=== PATIENT | male | born 1965 | race African-American/Black ===

== ENCOUNTER → 2018-06-03 12:44 | Outpatient (CLI) | payer MEDICAID, SELFPAY ==
--- NOTE | 2018-04-29 15:34 | HP.PCM_ITS ---
History and Physical DATE OF SURGERY: 05/16/2018 SCHEDULED PROCEDURE: Left shoulder arthroscopy with subacromial decompression and distal clavicle excision and rotator cuff repair HISTORY OF PRESENT ILLNESS: This is a 53-year-old male who is been having ongoing pain in the left nondominant shoulder since September 2017. Patient can't recall any known trauma or injury. 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 Patient states he lost his job because he cannot do the work. He is currently unemployed. Patient did have an MRI of the left shoulder which did reveal supraspinatus tear. Patient continues to complain of increased pain in his limited with his range of motion left shoulder. He cannot do any overhead activity due to the pain. He has been using oxycodone for pain control. Patient denies any chest pain, shortness of breath, fevers chills, recent infections. He does have medical history pertinent for hypertension. After discussion with Dr. Jese Barrera, the patient does wish to proceed with a left shoulder arthroscopy with subacromial decompression, distal clavicle excision, and rotator cuff repair. REVIEW OF SYSTEMS: ROS: Const: Denies anorexia, change in appetite, fever, hard of hearing, vision problems and weight change. CV: Denies chest pain, heart murmur, irregular heartbeat and peripheral vascular disease. Resp: Denies asthma, cough, pneumonia, sleep apnea, SOB, tuberculosis and wheezing. GI: Denies constipation, diarrhea, difficulty swallowing, heartburn, nausea, bloody stools and vomiting. : Urinary: denies incontinence. Musculo: Denies leg swelling, limp, trouble walking and weakness. Skin: Denies Raynaud's, history of shingles and tattoo. Neuro: Denies ambulatory dysfunction, dizziness, numbness/tingling and tremor. Psych: Denies anxiety, depression, insomnia, mental illness and stress. Brian/Lymph: Denies anemia, bleeding/bruising tendency and past transfusion. Reviewed, no changes. PAST MEDICAL HISTORY: PMH: Medical Problems: High Blood Pressure Accidents: LT Great Toe FX LT Pinky Finger Injury - TABLE SAW Surgical Hx: None Anesthesia Complications: None Assistive Devices: None Reviewed, no changes. SOCIAL HISTORY: SH: Marital: Single.Occupation: Currently Working.Work Status: Currently Working.Hand Dominance: Right-handed. Personal Habits: Cigarette Use: Never Smoked Cigarettes.Alcohol: Has consumed alcohol in the past.Drug Use: Denies Use.Enjoy Exercising: Daily. Reviewed, no changes. VITALS: Ht: 67 Wt: 138lb Wt k.597 BMI: 21.6 BP: 140/84 Pulse: 68 Resp: 16 T: 98.3 T: 36.8C ALLERGIES: No Known Drug Allergy MEDICATIONS: Oxycodone HCL 5 mg 1-2 tab by mouth every 6 hours, Tylenol Extra Strength 500 mg 2 by mouth every 8 hours, Diclofenac Potassium 50 mg take one tablet by mouth three times daily PRE-OP EXAM: General appearance:NORMAL Other: Eyes: Conjunctivae and lids: NORMAL Pupils: ERR Ears, Nose, Mouth, and Throat: NORMAL Other: Inspection of lips, teeth and gums: NORMAL Other: Neck: Examination of neck: no masses noted. Respiratory: Assessment of respiratory effort: NORMAL Other: Auscultation of lungs: clear to auscultation no wheezes, rhonchi or rales. Cardiovascular: Auscultation of heart: regular rate and rhythm, no murmurs, gallops or rubs. Exam of carotid arteries: NORMAL Other: Gastrointestinal: Exam of abdomen: soft, nontender, nondistended bowel sounds present. PHYSICAL EXAMINATION: Left shoulder is cool to touch without erythema. Patient has tenderness to palpation over the acromioclavicular joint as well as the subacromial space on the lateral shoulder. Patient has limited active range of motion of the left shoulder. Active Left shoulder range of motion: Forward flexion 40, abduction 40, external rotation 40, all producing increased pain. Passive range of motion of the left shoulder: Forward flexion 170, adduction 170, external rotation 50. Patient has 4/5 supraspinatus strength test with increased pain, 4/5 external rotation strength with increased pain, 5-/5 internal rotation with pain. Positive drop arm exam, positive Boyer impingement sign, positive Neer's impingement. Sensation intact to light touch. IMAGING STUDIES: 1. Previous x-rays of the left shoulder reveal no acute finding for fracture or dislocation. There is good joint space in the glenohumeral joint. No lytic or blastic lesions. Next 2. MRI of the left shoulder was obtained on January 05, 2018 at [facility] reveals high-grade partial versus complete tear of the supraspinatus. There is downsloping of the acromion. IMPRESSION: 1. Left shoulder rotator cuff tear 2. Hypertension PLAN: Dr. Barrera did discuss and review with the patient all treatment options including surgical versus nonsurgical options. Patient does wish to proceed with the above-stated procedure. Potential risks, benefits, and complications of the procedure were discussed in detail including but not limited to , infection, nerve and blood vessel damage, persistent pain, numbness, tingling, paresthesias, blood clot, pulmonary embolism, and requirement for possible further surgery. The patient expressed full understanding and has no further questions for the doctor. Patient does agree to proceed with the above-stated procedure and has signed the surgery consent form. ___ I have re-examined the patient. There are no clinical changes since date of exam. ___ See progress notes for changes. ___ Dictated on admission Date: Time: Signature:
== END ==
PROVIDERS: Family Provider Family Medicine; PCP Family Medicine; Referring Provider Orthopaedic Surgery; Visit Provider Orthopaedic Surgery
DX: Z01.818 Encounter for other preprocedural examination (principal)

== ENCOUNTER → 2018-07-12 13:51 | Outpatient (CLI) | payer MEDICAID, SELFPAY ==
[2018-07-12 15:52] LABS: Absolute Lymphocyte Count 2.25 X10^3/ul (0.83-4.51); Absolute Neutrophil Count 4.3 X10^3/uL (2.0-7.7); Basophil# 0.01 X10^3/uL; Basophil% 0.1 % (0-1); Eosinophil# 0.02 X10^3/uL; Eosinophils% 0.3 % (0-5); Hematocrit 40.7 % (40-54); Hemoglobin 13.8 g/dl (13.0-16.5); Lymphocyte # 2.25 X10^3/ul (4.0); Lymphocyte % 32.3 % (19-41); Mean Corp Hgb Conc 33.9 g/gl (32-36); Mean Corpuscular Hgb 29.4 pg (27.0-32.0); Mean Corpuscular Volume 86.8 fL (80-94); Mean Platelet Vol. 11.1 fl (6.2-12.0); Monocyte# 0.36 X10^3/uL; Monocyte% 5.2 % (0-10); Neutrophil # 4.29 X10^3/uL (2.7-7.7); Neutrophil % 61.7 % (47-70); Platelet Count 196 K/mm3 (150-450); RBC Distribution Width CV 12.4 % (11.6-14.6); RBC Distribution Width SD 39.4 fl (35.1-43.9); Red Blood Count 4.69 M/mm3 (4.6-6.2)
[2018-07-12 15:53] LABS: POSITIVE COUNT NO; POSITIVE DIFFERENTIAL NO; POSITIVE MORPHOLOGY NO
[2018-07-12 16:16] LABS: ALB/GLOB Ratio 0.9 RATIO (0.9-2.4); AST(SGOT) 19 U/L (15-37); Alanine Aminotransfer ALT/SGPT 27 U/L (16-61); Albumin, Serum 3.7 g/dL (3.2-5.0); Alkaline Phosphatase 76 U/L (45-117); Anion Gap 9 (5-15); BUN 14 mg/dL (7-18); BUN/Creat Ratio 9.2 RATIO (10-20); Calcium,Total 8.9 mg/dL (8.5-10.1); Chloride 109 mmol/L (98-107); Creatinine, Serum 1.52 mg/dL (0.70-1.30); EST Glomerular Filtration Rate 51 mL/min (>60); Est Glom Filt Rate - Afr Amer 62 mL/min (>60); Globulin 3.9 g/dL (2.2-4.2); Glucose 107 mg/dL (74-106); Potassium 3.7 mmol/L (3.5-5.1); Protein, Total 7.6 g/dL (6.4-8.2); Sodium Level 141 mmol/L (136-145)
--- OUTSIDE RECORDS SUMMARY | 2018-10-14 01:30 | XMS RPT_ITS ---
:1965 Author Organization OHIP Care Team Providers Name Role Phone CLAUDE WESTLEY Attending Unavailable PHYSICIAN, NONE Primary Care Unavailable PHYSICIAN, NONE Primary Care Unavailable GLORY HENDERSON, DR. YAMILE Paez Attending Unavailable MELODY HENDERSON, DR. BUBBA Kaiser Attending Unavailable MELODY HENDERSON, DR. BUBBA Kaiser Primary Care Unavailable MELODY HENDERSON, DR. BUBBA Kaiser Attending Unavailable DR. BUBBA DRISCOLL DO Primary Care Unavailable OZZY CHAU, MS. AJ Roach Attending Unavailable DR. BUBBA DRISCOLL DO Primary Care Unavailable LEISA BRICE Attending Unavailable MELODY HENDERSON, DR. BUBBA Kaiser Primary Care Unavailable LEISA BRICE Attending Unavailable DR. BUBBA DRISCOLL DO Primary Care Unavailable TARIK LOUISE Attending Unavailable DR. BUBBA DRISCOLL DO Primary Care Unavailable CEDRIC VILLALPANDO Attending Unavailable CEDRIC VILLALPANDO Referring Unavailable DR. BUBBA DRISCOLL DO Primary Care Unavailable Bubba Driscoll Attending Unavailable Bubba Driscoll Primary Care Unavailable Janis Barrera Attending Unavailable Janis Barrera Referring Unavailable Bubba Driscoll Primary Care Unavailable PROBLEMS PROBLEMS DATE TYPE CONDITION / CODE ATTENDING STATUS SOURCE 07/12/2018 Unknown Z01.818 - Encounter Bubba Driscoll Active [place] for other [facility] preprocedural Hospital examination / Repository Z01.818(ICD-10) PROCEDURES PROCEDURES No Procedure Records FoundRESULTS RESULTS CBC W/DIFF, AUTOMATED Collected: 07/12/2018 Status: F Source: [place] 1:53 PM [facility] REPOSITORY TYPE CODE TESTS RESULT OUT OF RANGE REFERENCE UNITS LAB L100.1000 4.4-11.0 K/mm3 Normal WBC 7.0 LAB L100.1200 4.6-6.2 M/mm3 Normal RBC 4.69 LAB L100.1300 13.0-16.5 g/dl Normal HGB 13.8 LAB L100.1400 40-54 % Normal HCT 40.7 LAB L100.1500 80-94 fL Normal MCV 86.8 LAB L100.1600 27.0-32.0 pg Normal MCH 29.4 LAB L100.1700 32-36 g/gl Normal MCHC 33.9 LAB L100.1810 11.6-14.6 % Normal RDW CV 12.4 LAB L100.1820 35.1-43.9 fl Normal RDW SD 39.4 LAB L100.1900 150-450 K/mm3 Normal PLT 196 LAB L100.2000 6.2-12.0 fl Normal MPV 11.1 LAB L100.2100 47-70 % Normal NEUT% 61.7 LAB L100.2200 19-41 % Normal LY% 32.3 LAB L100.2300 0-10 % Normal MONO% 5.2 LAB L100.2400 0-5 % Normal EO% 0.3 LAB L100.2500 0-1 % Normal BASO% 0.1 LAB L100.2550 0.0-0.9 % Normal IM GRAN % 0.400 Result Comment: IG% - Immature Granulocytes (promyelocytes, myelocytes and metamyelocytes) > 1% indicates that a LEFT SHIFT is Present. LAB L100.2620 2.0-7.7 X10 3/uL Normal Absolute Neut 4.3 LAB L100.2720 0.83-4.51 X10 3/ul Normal Absolute Lymph 2.25 Performed By: #### L100.0100 #### [facility] [address] [place], [address] COMPREHENSIVE METABOLIC Collected: 07/12/2018 Status: F Source: [facility] 1:53 PM [facility] REPOSITORY TYPE CODE TESTS RESULT OUT OF RANGE REFERENCE UNITS LAB L501.0100 74-106 mg/dL High GLU 107 Result Comment: Fasting Glucose result from 100 to 125 mg/dL suggests IMPAIRED HOMEOSTASIS per A.D.A. criteria. Please note revised GLUCOSE reference range effective 2017. LAB L501.1000 7-18 mg/dL Normal BUN 14 LAB L501.1100 0.70-1.30 mg/dL High CREAT,SERUM 1.52 Result Comment: The validity of the calculated GFR AND GFRAA in patients over 70 years has not been determined. Clinical correlation is essential. LAB L501.1110 >60 mL/min Low EST GFR 51 Result Comment: Non- GFR Calc LAB L501.1115 >60 mL/min Normal EST GFR - AA 62 Result Comment: GFR Calc LAB L501.1300 10-20 RATIO Low BUN/CRE 9.2 LAB L501.1500 6.4-8.2 g/dL Normal T PROT 7.6 LAB L501.1800 3.2-5.0 g/dL Normal ALB 3.7 LAB L501.1950 2.2-4.2 g/dL Normal GLOB 3.9 LAB L501.2000 0.9-2.4 RATIO Normal A/G 0.9 LAB L501.2200 8.5-10.1 mg/dL Normal CA 8.9 LAB L501.4100 15-37 U/L Normal AST 19 LAB L501.4305 45-117 U/L Normal ALK P 76 LAB L501.4405 16-61 U/L Normal ALT 27 LAB L501.4600 0.20-1.00 mg/dL Normal T BILI 0.30 LAB L501.5300 136-145 mmol/L Normal NA 141 LAB L501.5600 3.5-5.1 mmol/L Normal K 3.7 LAB L501.5900 98-107 mmol/L High CL 109 LAB L501.6100 21.0-32.0 mmol/L Normal CO2 23.0 LAB L501.6200 5-15 Normal GAP 9 Performed By: #### L500.4050 #### [facility] [address], [address] HISTORY AND PHYSICAL Observed: 04/29/2018 Status: F Source: [facility] EXAM 3:34 PM [facility] REPOSITORY [facility] Medical Records Department [address] [place] [address] History and Physical 04/29/18 1533 MR#: [id number] Acct: [id number] Name: JANIS SEVERINO Rep #: [id number] : 1965 53 From: Cedric Wray PA-C PCP: Bubba Driscoll DO Status: PRE [facility] [facility] [place] and Physical DATE OF SURGERY: 05/16/2018 SCHEDULED PROCEDURE: Left shoulder arthroscopy with subacromial decompression and distal clavicle excision and rotator cuff repair HISTORY OF PRESENT ILLNESS: This is a 53-year-old male who is been having ongoing pain in the left nondominant shoulder since September 2017. Patient can't recall any known trauma or injury. 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 Patient states he lost his job because he cannot do the work. He is currently unemployed. Patient did have an MRI of the left shoulder which did reveal supraspinatus tear. Patient continues to complain of increased pain in his limited with his range of motion left shoulder. He cannot do any overhead activity due to the pain. He has been using oxycodone for pain control. Patient denies any chest pain, shortness of breath, fevers chills, recent infections. He does have medical history pertinent for hypertension. After discussion with Dr. Janis Barrera, the patient does wish to proceed with a left shoulder arthroscopy with subacromial decompression, distal clavicle excision, and rotator cuff repair. REVIEW OF SYSTEMS: ROS: Const: Denies anorexia, change in appetite, fever, hard of hearing, vision problems and weight change. CV: Denies chest pain, heart murmur, irregular heartbeat and peripheral vascular disease. Resp: Denies asthma, cough, pneumonia, sleep apnea, SOB, tuberculosis and wheezing. GI: Denies constipation, diarrhea, difficulty swallowing, heartburn, nausea, bloody stools and vomiting. : Urinary: denies incontinence. Musculo: Denies leg swelling, limp, trouble walking and weakness. Skin: Denies Raynaud's, history of shingles and tattoo. Neuro: Denies ambulatory dysfunction, dizziness, numbness/tingling and tremor. Psych: Denies anxiety, depression, insomnia, mental illness and stress. Brian/Lymph: Denies anemia, bleeding/bruising tendency and past transfusion. Reviewed, no changes. PAST MEDICAL HISTORY: PMH: Medical Problems: High Blood Pressure Accidents: LT Great Toe FX LT Pinky Finger Injury - TABLE SAW Surgical Hx: None Anesthesia Complications: None Assistive Devices: None Reviewed, no changes. SOCIAL HISTORY: SH: Marital: Single.Occupation: Currently Working.Work Status: Currently Working.Hand Dominance: Right-handed. Personal Habits: Cigarette Use: Never Smoked Cigarettes.Alcohol: Has consumed alcohol in the past.Drug Use: Denies Use.Enjoy Exercising: Daily. Reviewed, no changes. VITALS: Ht: 67 Wt: 138lb Wt k.597 BMI: 21.6 BP: 140/84 Pulse: 68 Resp: 16 T: 98.3 T: 36.8C ALLERGIES: No Known Drug Allergy MEDICATIONS: Oxycodone HCL 5 mg 1-2 tab by mouth every 6 hours, Tylenol Extra Strength 500 mg 2 by mouth every 8 hours, Diclofenac Potassium 50 mg take one tablet by mouth three times daily PRE-OP EXAM: General appearance:NORMAL Other: Eyes: Conjunctivae and lids: NORMAL Pupils: ERR Ears, Nose, Mouth, and Throat: NORMAL Other: Inspection of lips, teeth and gums: NORMAL Other: Neck: Examination of neck: no masses noted. Respiratory: Assessment of respiratory effort: NORMAL Other: Auscultation of lungs: clear to auscultation no wheezes, rhonchi or rales. Cardiovascular: Auscultation of heart: regular rate and rhythm, no murmurs, gallops or rubs. Exam of carotid arteries: NORMAL Other: Gastrointestinal: Exam of abdomen: soft, nontender, nondistended bowel sounds present. PHYSICAL EXAMINATION: Left shoulder is cool to touch without erythema. Patient has tenderness to palpation over the acromioclavicular joint as well as the subacromial space on the lateral shoulder. Patient has limited active range of motion of the left shoulder. Active Left shoulder range of motion: Forward flexion 40, abduction 40, external rotation 40, all producing increased pain. Passive range of motion of the left shoulder: Forward flexion 170, adduction 170, external rotation 50. Patient has 4/5 supraspinatus strength test with increased pain, 4/5 external rotation strength with increased pain, 5-/5 internal rotation with pain. Positive drop arm exam, positive Boyer impingement sign, positive Neer's impingement. Sensation intact to light touch. IMAGING STUDIES: 1. Previous x-rays of the left shoulder reveal no acute finding for fracture or dislocation. There is good joint space in the glenohumeral joint. No lytic or blastic lesions. Next 2. MRI of the left shoulder was obtained on January 05, 2018 at [facility] reveals high-grade partial versus complete tear of the supraspinatus. There is downsloping of the acromion. IMPRESSION: 1. Left shoulder rotator cuff tear 2. Hypertension PLAN: Dr. Barrera did discuss and review with the patient all treatment options including surgical versus nonsurgical options. Patient does wish to proceed with the above-stated procedure. Potential risks, benefits, and complications of the procedure were discussed in detail including but not limited to , infection, nerve and blood vessel damage, persistent pain, numbness, tingling, paresthesias, blood clot, pulmonary embolism, and requirement for possible further surgery. The patient expressed full understanding and has no further questions for the doctor. Patient does agree to proceed with the above-stated procedure and has signed the surgery consent form. ___ I have re-examined the patient. There are no clinical changes since date of exam. ___ See progress notes for changes. ___ Dictated on admission Date: Time: Signature: 04/29/18 1534 <Electronically signed by Cedric Wray PA-C> Date Cedric Wray PA-C Cosigner Signature: Date (if applicable) CC: Bubba Driscoll DO; Cedric CHAU Signed CBC Collected: 02/07/2018 Status: F Source: [facility] 9:30 AM [facility] REPOSITORY TYPE CODE TESTS RESULT OUT OF REFERENCE UNITS RANGE LAB WBC(LOINC) 4.60-10.80 10 3/mcL WBC 7.40 LAB RBCCT(LOINC 4.04-6.13 10 6/mcL ) RBC 5.01 LAB HGB(LOINC) 14.0-18.0 G/dL Hgb 14.6 LAB HCT(LOINC) 42.0-52.0 % Hct 42.6 LAB MCV(LOINC) 80.0-94.0 fL MCV 85.1 LAB MCH(LOINC) 27.0-31.2 pg MCH 29.2 LAB MCHC(LOINC) 31.8-35.4 G/dL MCHC 34.3 LAB RDW(LOINC) 11.5-14.5 % RDW 13.4 LAB PLT(LOINC) 130-400 10 3/mcL Platelet 228 LAB MPV(LOINC) 7.4-10.4 fL MPV 8.3 Performed By: #### CBC, ADIFF, ANEU, GFR, BMP #### [address] [address] .AUTO DIFF Collected: 02/07/2018 Status: F Source: [facility] 9:30 AM [facility] REPOSITORY TYPE CODE TESTS RESULT OUT OF REFERENCE UNITS RANGE LAB JOSEPH(LOINC) 37.0-80.0 % Neutrophil % 59.8 LAB LYM(LOINC) 10.0-50.0 % Lymphocyte % 33.5 LAB MON(LOINC) 1.7-13.0 % Monocyte % 5.6 LAB EO(LOINC) 0.0-7.0 % Eosinophil % 0.6 LAB BAS(LOINC) 0.0-2.5 % Basophil % 0.5 LAB ABLYM(LOIN 0.77-3.85 10 3/mcL C) Lymphocyte, 2.50 Absolute LAB ENEIDA(LOINC 0.15-1.00 10 3/mcL ) Monocyte, 0.40 Absolute LAB AEOS(LOINC 0.00-0.40 10 3/mcL ) Eosinophil, 0.00 Absolute LAB ABAS(LOINC 0.00-0.19 10 3/mcL ) Basophil, 0.00 Absolute Performed By: #### CBC, ADIFF, ANEU, GFR, BMP #### [address] [address] .NEUABS Collected: 02/07/2018 Status: F Source: [facility] 9:30 AM [facility] REPOSITORY TYPE CODE TESTS RESULT OUT OF REFERENCE UNITS RANGE LAB ANEU(LOINC) 2.85-6.16 10 3/mcL Neutrophil, 4.40 Absolute Performed By: #### CBC, ADIFF, ANEU, GFR, BMP #### [address] [address] .GFR Collected: 02/07/2018 Status: F Source: [facility] 9:30 AM [facility] REPOSITORY TYPE CODE TESTS RESULT OUT OF REFERENCE UNITS RANGE LAB GFRAA(LOINC ml/min/1.73 ) sqm GFR >60 Mont[place]grin Result Comment: GFR Population mean for , Non- Americans Ages 20-29 = 116 mL/min/1.73 sq.m. Ages 30-39 = 107 mL/min/1.73 sq.m. Ages 40-49 = 99 mL/min/1.73 sq.m. Ages 50-59 = 93 mL/min/1.73 sq.m. Ages 60-69 = 85 mL/min/1.73 sq.m. Ages 70+ = 75 mL/min/1.73 sq.m. Chronic Kidney Disease: Less than 60 mL/min/1.73 square meters End Stage Renal Disease: Less than 15 mL/min/1.73 square meters LAB GFRNO(LOINC) ml/min/1.73sqm GFR Non- >60 Result Comment: GFR Population mean for , Non- Americans Ages 20-29 = 116 mL/min/1.73 sq.m. Ages 30-39 = 107 mL/min/1.73 sq.m. Ages 40-49 = 99 mL/min/1.73 sq.m. Ages 50-59 = 93 mL/min/1.73 sq.m. Ages 60-69 = 85 mL/min/1.73 sq.m. Ages 70+ = 75 mL/min/1.73 sq.m. Chronic Kidney Disease: Less than 60 mL/min/1.73 square meters End Stage Renal Disease: Less than 15 mL/min/1.73 square meters Performed By: #### CBC, ADIFF, ANEU, GFR, BMP #### [address] [address] BMP Collected: 02/07/2018 Status: F Source: [facility] 9:30 AM [facility] REPOSITORY TYPE CODE TESTS RESULT OUT OF REFERENCE UNITS RANGE LAB GLU(LOINC) 70-105 mg/dL Glucose High Level 116 LAB NA(LOINC) 136-146 mEq/L Sodium Level 140 LAB K(LOINC) 3.5-5.1 mEq/L Potassium Level 4.4 LAB CL(LOINC) 98-107 mEq/L Chloride 105 LAB CO2(LOINC) 22-29 mEq/L CO2 28 LAB EBAL(LOINC mEq/L ) Electrolyte Balance 7.0 LAB BUN(LOINC) 7.0-18.0 mg/dL BUN 11.3 LAB CRE(LOINC) 0.6-1.2 mg/dL Creatinine Lvl (s) 0.9 LAB BC(LOINC) 7-27 ratio BUN/Creatinine 13 Ratio LAB CA(LOINC) 8.4-10.2 mg/dL Calcium Lvl 9.7 Performed By: #### CBC, ADIFF, ANEU, GFR, BMP #### [id number] [place], [place] [address] MRI SHOULDER W/O Observed: 01/05/2018 Status: F Source: [facility] CONTRAST LEFT 1:00 PM [facility] REPOSITORY ORIGINAL MRI SHOULDER W/O CONTRAST LEFT CLINICAL STATEMENT: LEFT SHOULDER PAIN. Os acromiale COMPARISON: LEFT shoulder radiograph 12/25/2017 FINDINGS: The os acromiale is 2.5 cm in length. There is a small amount of marrow edema within the base of the acromion process posteriorly, adjacent to the synchondrosis or pseudarthrosis. There is no significant lateral downsloping of the acromion/os acromiale. The acromioclavicular joint is intact. There is no significant acromioclavicular joint arthrosis. The rotator cuff muscles are normal in bul k. The distal supraspinatus tendon is attenuated, and there is high-grade partial versus complete tear, without tendon retraction. Infraspinatus and subscapularis tendinosis is demonstrated. Fluid signa l within the subscapularis raises question for focal delamination type tear. The teres minor is intact. The long head biceps tendon appears torn. The labrum is degenerated. Glenohumeral relationship is preserved. Mildly prominent nodes are incidentally noted in the axilla. IMPRESSION: 1. High-grade partial versus complete tear of the supraspinatus. No significant tendon retraction. 2. Infraspinatus and subscapularis tendinosis. Apparent delamination type tear of the subscapularis. 3. Long head biceps tendon appears torn. 4. Question axillary adenopathy, clinical correlation needed. 5. Os acromiale. Interpreted By: Olga Little MD Preliminary Report By: Olga Little MD Electronically Signed By: Olga Little MD Dictated Date: 01/05/2018 3:18:12 PM Prelim Date: 01/05/2018 3:18:12 PM Sign Date: 01/05/2018 3:37:25 PM XR FOREIGN BODY LOC Observed: 01/05/2018 Status: F Source: [facility] EYE BILATERAL 12:58 PM [facility] REPOSITORY ORIGINAL XR FOREIGN BODY LOC EYE BILATERAL CLINICAL STATEMENT: pre screening for mri COMPARISON: None FINDINGS:A single image of the orbits was performed to evaluate for foreign body. There is no metallic foreign body confirmed. Artifact is noted incidentally overlying the RIGHT lateral soft tissues adj acent to the zygoma. There is however, findings compatible with fairly extensive paranasal sinus disease in the maxillary sinuses primarily on the RIGHT. IMPRESSION:No opaque foreign body within either orbit Interpreted By: Lorenza Batres MD Preliminary Report By: Lorenza Batres MD Electronically Signed By: Lorenza Batres MD Dictated Date: 01/05/2018 1:09:55 PM Prelim Date: 01/05/2018 1:09:55 PM Sign Date: 01/05/2018 1:10:27 PM XR CHEST 1 VIEW Observed: 01/04/2018 Status: F Source: [facility] 4:20 PM [facility] REPOSITORY ORIGINAL Images acquired, not reported on this accession number. XR SHOULDER MINIMUM 2 Observed: 12/25/2017 Status: F Source: [facility] RIGHT 9:24 AM [facility] REPOSITORY ORIGINAL XR SHOULDER MINIMUM 2 VIEWS RIGHT CLINICAL STATEMENT: luiz shoulder pain COMPARISON: 01/29/2015 FINDINGS: 4 views obtained. An os acromiale noted. Chronic remodeling noted at the rotator cuff insertion. No fracture visualized. There is no traumatic malalignment. IMPRESSION: Large os acromiale. Indicators of chronic rotator cuff disease Interpreted By: Rene Sheppard MD Preliminary Report By: Rene Sheppard MD Electronically Signed By: Rene Sheppard MD Dictated Date: 12/25/2017 9:52:00 AM Prelim Date: 12/25/2017 9:52:00 AM Sign Date: 12/25/2017 9:53:23 AM XR SHOULDER MINIMUM 2 Observed: 12/25/2017 Status: F Source: [facility] LEFT 9:20 AM [facility] REPOSITORY ORIGINAL XR SHOULDER MINIMUM 2 VIEWS LEFT CLINICAL STATEMENT: luiz shoulder pain COMPARISON: None FINDINGS: A large os acromiale noted. Chronic remodeling at the rotator cuff insertion visualized. There is no fracture or traumatic malalignment. IMPRESSION: 1. Large os acromiale. 2. Indicators of chronic rotator cuff disease Interpreted By: Rene Sheppard MD Preliminary Report By: Rene Sheppard MD Electronically Signed By: Rene Sheppard MD Dictated Date: 12/25/2017 9:53:25 AM Prelim Date: 12/25/2017 9:53:25 AM Sign Date: 12/25/2017 9:54:34 AM ALLERGIES ALLERGIES DATE TYPE / CODE NAME / CODE REACTION SEVERITY SOURCE 05/02/2018 Drug No Known Unknown [place] Allergy/4160 Allergies/F00 Hospital [address](SNOMED 8115657(RXNOR Repository CT) M) ENCOUNTERS ENCOUNTERS ADMIT/DISCHARGE ACCOUNT NUMBER ADMITTING ENCOUNTER LOCATION SOURCE CLASS 07/12/2018 [id number] Ambulatory [facility] ding:BFHLAB Repository 06/03/2018 [id number] Ambulatory [facility] ding:SD Repository 05/02/2018 [id number] Ambulatory BBuilding:On license of [facility] Repository 04/11/2018/04/11/20 [id number] Emergency BBuilding:[address] Repository 02/07/2018 [id number] Ambulatory BBuilding:On license of [facility] Repository 02/07/2018/02/08/20 [id number] Ambulatory [address] ding:OLAB [facility] Repository 01/05/2018/01/06/20 [id number] Ambulatory [address] ding:RAD [facility] Repository 01/04/2018/01/05/20 [id number] Ambulatory [address] ding:[facility] Repository 12/25/2017/12/26/19 [id number] Ambulatory [address] ding:[facility] Repository 12/08/2017/12/09/19 [id number] Emergency BBuilding:[address] [facility] Repository 11/24/2017/11/25/19 [id number] Emergency BBuilding:[address] Repository PAYERS PAYERS ENCOUNTER GUARANTOR PAYER SUBSCRIBER SOURCE 07/12/2018 JANIS Guo Primary JANIS Guo [facility] Insurance:Mary DOMINGUEZ: [facility] y Number: [id number] [id number] Repository [address]Nvb: [phone]) Date:9983-21-48[phone] (HP) [address] [place] [address]XW: 07/12/2018 Secondary NOT GIVENUNK [place] Insurance:SELF PAY [facility]: Effective Repository Date:2018-07-12 06/03/2018 JANIS Guo [facility] JANIS Guo [place] [id number] Insurance:[place] HUNTERDOB: Community [address] y Number: [id number], [place] [id number] Repository [address]Oea: ([phone]) Date:0115-48-64[phone] () [address] [place] [address]RL: 06/03/2018 Secondary NOT GIVENUNK [place] Insurance:SELF PAY [facility] Number: Effective Repository Date:2018-04-20 05/02/2018 JANIS Guo [facility]:GIBBS HUNTERDOB: [facility] W MEDICAIDPolicy [id number] Repository MARK[address] Number: [address] [place] [id number] [place], [place] [address]Hta: ([phone]) Date:2018-05-02 577[address]Gmh: [id number] [phone] (HP)Tel: [phone] (WP) Name:X[address] ()Tel: [phone] [phone] () [place], [place] [address]FH: 04/11/2018 JANIS Guo [facility] JANIS Guo [facility] HUNTERDOB: Insurance:GIBBS HUNTERDOB: [facility] W MEDICAIDPolicy [id number] Repository MARKET Number: [address] [facility] [place] [id number] [place], [place] [address]Bou: 330) Date:2018-04-11 419[address]Fdb: [id number] [phone] (HP)Tel: [phone] (WP) Name:XPO Eve (HP)Tel: [phone] ClaimLong 0000000 (WP) ARIANNE Monk [address]JD: 02/07/2018 JANIS Guo [facility] JANIS Bullard [facility] HUNTERDOB: Insurance:[place] P[place] HUNTERDOB: [facility] CONNECTPolicy Number: [id number] Repository MARKET [id number] [place], [place] Date:2018-02-07 - [place], [place] [address]Waz: [phone] [phone]: Name:CPO Prado [phone] (HP)Tel: [phone] (WP) MD Hayley (HP)Tel: [phone]: (WP) [phone] 02/07/2018 JANIS Brant [facility] JANIS Bullard [facility] HUNTERDOB: Insurance:[facility] HUNTERDOB: [facility] CONNECTPolicy Number: [id number] Repository MARKET [id number] [address] [place], [place] Date:2018-02-07 - [place], [place] [address]Ldd: [phone] [phone]: Name:CPO Prado [phone] (HP)Tel: [phone]) MD Hayley (HP) (WP) [phone]: (WP) [phone] 01/05/2018 JANIS Brant [facility] JANIS Bullard [facility] HUNTERDOB: Insurance:[place] PPO HUNTERDOB: [facility] CONNECTPolicy Number: [id number] Repository MARKET [id number] [place], [place] Date:2017-12-30 [place], [place] [address]Zah: [phone] [id number]: Name:CPO Prado [phone] (HP)Tel: [phone]) MD Haylye (HP) (WP) [phone]: (WP) [phone] 01/04/2018 [facility] HUNTERDOB: [facility] [id number] PAYPolicy Number: [id number] Repository [address] [place] [address] W [facility] [address]Iwo: Date:2018-01-03 - [place], [place] [id number] Name: [phone]: [phone]) (HP) [phone] (WP) (HP) (WP) 12/25/2017 [facility] HUNTERDOB: [facility] CONNECTPolicy Number: [id number] Repository MARKET [id number] [place], [place] Date:2017-12-25 - [place], [place] [address]Vih: [phone] [phone]: Name:CPO Prado [phone] (HP)Tel: [phone]) MD Hayley (HP) (WP) [phone]: (WP) [phone] 12/08/2017 [facility] HUNTERDOB: [facility] CONNECTPolicy Number: [id number] Repository MARKET [id number] [place], [place] Date:2017-12-08 - [place], [place] [address]Odj: [phone] [phone]: Name:CPO Prado [phone] (HP)Tel: [phone]) MD Hayley (HP) (WP) [phone]: (WP) [phone] 11/24/2017 JANIS Guo [facility] HUNTERDOB: Insurance:[facility] HUNTERDOB: [facility] [id number] [facility] Number: [id number] Repository MARKET [id number] [address] [place], [place] Date:2017-11-24 [place], [place] [address]Txx: [phone] [phone]: Name:CPO Prado [phone] ()Tel: [phone] jignesh () (WP) [phone]: (WP) [phone]
== END ==
PROVIDERS: Family Provider Family Medicine; PCP Family Medicine; Visit Provider Family Medicine
DX: Z01.818 Encounter for other preprocedural examination (principal)
CPT/HCPCS: 36415; 80053; 85025

== ENCOUNTER 2018-10-03 07:31 | Day surgery (SDC) | payer MEDICAID, SELFPAY ==
--- NOTE | 2018-09-27 15:58 | HP.PCM_ITS ---
History and Physical DATE OF SURGERY: 10/03/2018 SCHEDULED PROCEDURE: Left shoulder arthroscopy with subacromial decompression, distal clavicle excision, rotator cuff repair HISTORY OF PRESENT ILLNESS: This is a 53-year-old male who has been having ongoing pain in the left nondominant shoulder since September 2017. 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 Patient states he lost his job previously because he could not work. He was initially to undergo the surgery in April 2018 but had to cancel due to an infected tooth. Since then patient has had clearance from primary care physician Dr. Driscoll. Patient has had a previous MRI which did reveal supraspinatus tear. Pain continues in the left shoulder and his range of motion is limited due to the pain. He has increased pain and difficulty with any overhead activity. He has been using oxycodone for pain control. After discussion with Dr. Dr. Jese Barrera, the patient wishes to proceed with a left shoulder arthroscopy with subacromial decompression, distal clavicle excision, and rotator cuff repair. Patient currently denies any chest pain, shortness of breath, fevers chills, or recent infections. Patient has medical history pertinent for hypertension. REVIEW OF SYSTEMS: ROS: Const: Denies anorexia, change in appetite, fever, hard of hearing, vision problems and weight change. CV: Denies chest pain, heart murmur, irregular heartbeat and peripheral vascular disease. Resp: Denies asthma, cough, pneumonia, sleep apnea, SOB, tuberculosis and wheezing. GI: Denies constipation, diarrhea, difficulty swallowing, heartburn, nausea, bloody stools and vomiting. : Urinary: denies incontinence. Musculo: Denies leg swelling, limp, trouble walking and weakness. Skin: Denies Raynaud's, history of shingles and tattoo. Neuro: Denies ambulatory dysfunction, dizziness, numbness/tingling and tremor. Psych: Denies anxiety, depression, insomnia, mental illness and stress. Brian/Lymph: Denies anemia, bleeding/bruising tendency and past transfusion. Reviewed, no changes. PAST MEDICAL HISTORY: PMH: Medical Problems: High Blood Pressure Accidents: LT Great Toe FX LT Pinky Finger Injury - TABLE SAW Surgical Hx: None Anesthesia Complications: None Assistive Devices: None Reviewed, no changes. SOCIAL HISTORY: SH: Marital: Single.Occupation: Not Currently Working.Work Status: Not Working Currently.Hand Dominance: Right-handed. Personal Habits: Cigarette Use: Never Smoked Cigarettes.Alcohol: Has consumed alcohol in the past.Drug Use: Denies Use.Enjoy Exercising: Daily. Reviewed, no changes. VITALS: Ht: 67 Wt: 147lb Wt k.679 BMI: 23.0 BP: 120/82 Pulse: 66 Resp: 16 T: 98.6 T: 37.0C ALLERGIES: No Known Drug Allergy MEDICATIONS: Diclofenac Potassium 50 mg take one tablet by mouth three times daily, Oxycodone HCL 5 mg 1-2 q 6 hours prn pain PRE-OP EXAM: General appearance:NORMAL Other: Eyes: Conjunctivae and lids: NORMAL Pupils: ERR Ears, Nose, Mouth, and Throat: NORMAL Other: Inspection of lips, teeth and gums: NORMAL Other: Neck: Examination of neck: no masses noted. Respiratory: Assessment of respiratory effort: NORMAL Other: Auscultation of lungs: clear to auscultation no wheezes, rhonchi or rales. Cardiovascular: Auscultation of heart: regular rate and rhythm, no murmurs, gallops or rubs. Exam of carotid arteries: NORMAL Other: Gastrointestinal: Exam of abdomen: soft, nontender, nondistended bowel sounds present. PHYSICAL EXAMINATION: Left shoulder is cool to touch without erythema or signs of infection. Patient does have tenderness to palpation over the acromioclavicular joint. Patient has limited range of motion of the left shoulder secondary to pain. Patient has positive Boyer and positive Neer impingement sign. Sensation intact to light touch. Neurovascularly intact. IMAGING STUDIES: 1. Previous x-rays of left shoulder revealed no findings of fracture or dislocation. Joint space in the glenohumeral joint. No lytic or blastic lesions. 2. MRI of the left shoulder was obtained at [facility] on September 02, 2018 which reveals full-thickness supraspinatus tear with retraction. IMPRESSION: 1. Left shoulder rotator cuff tear 2. Hypertension PLAN: Dr. Jese Barrera did discuss and review with the patient all treatment options including surgical versus nonsurgical options. Patient does wish to proceed with the above-stated procedure. Potential risks, benefits, and complications of the procedure were discussed in detail including but not limited to , infection, nerve and blood vessel damage, persistent pain, numbness, tingling, paresthesias, blood clot, pulmonary embolism, and requirement for possible further surgery. The patient expressed full understanding and has no further questions for the doctor. Patient does agree to proceed with the above-stated procedure and has signed the surgery consent form. This dictation was created using voice recognition software. Phonetic and/or grammatical errors may exist.. ___ I have re-examined the patient. There are no clinical changes since date of exam. ___ See progress notes for changes. ___ Dictated on admission Date: Time: Signature:
[2018-10-03] VITALS (8 sets, daily range): BP systolic 142–199; BP diastolic 80–103; PULSE 50–87; RESP 16–18; TEMP 35.7–36.9; O2SAT 99–100; BMI 21.4
--- NOTE | 2018-10-03 08:04 | EKG12_ITS ---
Test Reason : PRE-OP Blood Pressure : / mmHG Vent. Rate : 067 BPM Atrial Rate : 067 BPM P-R Int : 116 ms QRS Dur : 090 ms QT Int : 392 ms P-R-T Axes : 055 007 043 degrees QTc Int : 414 ms Normal sinus rhythm Normal ECG No previous ECGs available Confirmed by LYNDA FARNSWORTH, ELPIDIO ([id number]), editorial assistant RENAY WILCOX ([id number] on 10/07/2018 9:26:36 AM Referred By: Jese Barrera Confirmed By:ELPIDIO HOWELL MD
[2018-10-03] MEDS: Ketorolac 15 MG/ML Vial IV (09:39)
[2018-10-03] MEDS: Bupiv/Epi 0.25% 30 ML Vial (10:11)
[2018-10-03] MEDS: Cefazolin 2 GM in 0.9% Normal Saline 100 ML IV (10:25)
[2018-10-03] MEDS: Bupiv/Epi 0.5% Mpf 30 ML Vial (10:51)
--- NOTE | 2018-10-03 11:46 | PCM.OPRPT ---
Report of Operation Date of Procedure: 10/03/18 Pre-Operative Diagnosis: SAIS, AC arthrosis, chronic proximal biceps tendon tear and rotator cuff tear left shoulder Post-Operative Diagnosis: same Surgery/Procedure Performed:: ASD, Lindy procedure, extensinve intra-articular debridement and repair of rotator cuff tear left steerer: Edith Mcdonough Type of Anesthesia:: Block,Regional, General Anesthesiologist: Jeremiah Huerta Drains: 0 Estimated Blood Loss (mL): minimal Description of Procedure: Primary Surgeon/Physician: Jese Barrera steerer: ANABELLA Veronica steerer: Pre-Operative Diagnosis: Subacromial impingement syndrome, acromioclavicular arthrosis, chronic proximal biceps tendon tear and large rotator cuff tear left shoulder Post-Operative Diagnosis: same Surgery/Procedure Performed: ASD, Lindy procedure, intra-articular debridement and rotator cuff repair left shoulder Estimated Blood Loss: minimal Specimen's Removed: none Type of Anesthesia: general ASA Class: 2 Implants: [Arthrex swivel lock anchors x 2 with fibertape suture x 2 and fiberlink suture x 1] Surgical Indications: [ ] Procedure Description: Patient was greeted in the preoperative area. Their [left ] shoulder was marked with surgical marker. Preoperative antibiotics were administered. The patient was then taken to the operating suite in a stable condition. After adequate anesthesia was obtained and it was secured there placed in standard beachchair position. All bony prominences were well-padded her head was secured in a beachchair positioner. The arm was then prepped and draped in the usual sterile fashion. Surgical timeout was performed surgery was commenced. Standard posterior viewing portal was made and 30? arthroscope was introduced into the glenohumeral joint. Anterior portal was made under direct visualization. Extensive debridement of the anterior capsule was performed evaluation of the shoulder itself was performed with the following findings: [There was chronic absence of the biceps tendon, There was diffuse fraying of the glenoid labrum. The surface cartilage of the glenoid and humerus were in good condition. There was a large tear of the supraspinatus tendon into the leading edge of the infraspinatus tendon without significant retraction. An arthroscopic shaver was used to debride the labrum to a firm and stable rim. The shaver was also used to remove the intra-articular remains of the biceps tendon and to freshen the undersurface of the rotator cuff tear. ]. The subacromial space was then entered and extensive debridement of the subacromial bursa was performed. The undersurface of the acromion was then debrided with a thermal wand. This did reveal a type II acromion. Subacromial decompression was then performed with a arthroscopic bur from anterolateral posteromedial create a type I acromion. When this was complete the wand was then utilized to debride the acromioclavicular joint. No significant osteoarthritic changes. A distal clavicle resection was then performed removing approximately 5 mm of distal clavicle not violating the superior acromioclavicular ligament. This was complete attention was then turned to the rotator cuff. [The rotator cuff footprint was debrided of soft tissue and burred to a bed of bleeding bone in preparation for the cuff repair. Subsequently an Arthrex fiber tape suture was placed in a horizontal mattress fashion. Then a fiber link suture was placed centrally between the two limbs of the horizontal mattress suture. These were then brought laterally and secured to the bone with an Arthrex swivel lock anchor. In the leading edge of the infraspinatus, a horizontal mattress fiber tape suture was placed and secured to the bone laterally with an Arthrex swivel lock anchor ]. Excellent approximation of the rotator cuff to the decorticated bone was achieved. At this point all instruments were removed and the arthroscopic portals were closed with 3-0 nylon. Well-padded nonadherent dressing was applied and patient was taken to recovery room in stable condition. - Admit VTE Documentation VTE Present on Admission: No VTE Mechan Device Prophylaxis: SCD's, Knee High TELMA Hose VTE Pharm Prophylaxis ordered?: No Reason prophylaxis not ordered:: Treatment Not Indicated
--- NOTE | 2018-10-03 12:04 | OP.PCM_ITS ---
Report of Operation Date of Procedure: 10/03/18 Pre-Operative Diagnosis: SAIS, AC arthrosis, chronic proximal biceps tendon tear and rotator cuff tear left shoulder Post-Operative Diagnosis: same Surgery/Procedure Performed:: ASD, Linyd procedure, extensinve intra-articular debridement and repair of rotator cuff tear left conservation of resources commissioner: Edith Mcdonough Type of Anesthesia:: Block,Regional, General Anesthesiologist: Jeremiah Huerta Drains: 0 Estimated Blood Loss (mL): minimal Description of Procedure: Primary Surgeon/Physician: Jese Barrera conservation of resources commissioner: ANABELLA Veronica conservation of resources commissioner: Pre-Operative Diagnosis: Subacromial impingement syndrome, acromioclavicular ar throsis, chronic proximal biceps tendon tear and large rotator cuff tear left shoulder Post-Operative Diagnosis: same Surgery/Procedure Performed: ASD, Lindy procedure, intra-articular debridement and rotator cuff repair left shoulder Estimated Blood Loss: minimal Specimen's Removed: none Type of Anesthesia: general ASA Class: 2 Implants: [Arthrex swivel lock anchors x 2 with fibertape suture x 2 and fiberlink suture x 1] Surgical Indications: [ ] Procedure Description: Patient was greeted in the preoperative area. Their [left ] shoulder was marked with surgical marker. Preoperative antibiotics were administered. The patient was then taken to the operating suite in a stable condition. After adequate anesthesia was obtained and it was secured there placed in standard beachchair position. All bony prominences were well-padded her head was secured in a beachchair positioner. The arm was then prepped and draped in the usual sterile fashion. Surgical timeout was performed surgery was commenced. Standard posterior viewing portal was made and 30? arthroscope was introduced into the glenohumeral joint. Anterior portal was made under direct visualization. Extensive debridement of the anterior capsule was performed evaluation of the shoulder itself was performed with the following findings: [There was chronic absence of the biceps tendon, There was diffuse fraying of the glenoid labrum. The surface cartilage of the glenoid and humerus were in good condition. There was a large tear of the supraspinatus tendon into the leading edge of the infraspinatus tendon without significant retraction. An arthroscopic shaver was used to debride the labrum to a firm and stable rim. The shaver was also used to remove the intra-articular remains of the biceps tendon and to freshen the undersurface of the rotator cuff tear. ]. The subacromial space was then entered and extensive debridement of the subacromial bursa was performed. The undersurface of the acromion was then debrided with a thermal wand. This did reveal a type II acromion. Subacromial decompression was then performed with a arthroscopic bur from anterolateral posteromedial create a type I acromion. When this was complete the wand was then utilized to debride the acromioclavicular joint. No significant osteoa rthritic changes. A distal clavicle resection was then performed removing approximately 5 mm of distal clavicle not violating the superior acromioclavicular ligament. This was complete attention was then turned to the rotator cuff. [The rotator cuff footprint was debrided of soft tissue and burred to a bed of bleeding bone in preparation for the cuff repair. Subsequently an Arthrex fiber tape suture was placed in a horizontal mattress fashion. Then a fiber link suture was placed centrally between the two limbs of the horizontal mattress suture. These were then brought laterally and secured to the bone with an Arthrex swivel lock anchor. In the leading edge of the infraspinatus, a horizontal mattress fiber tape suture was placed and secured to the bone laterally with an Arthrex swivel lock anchor ]. Excellent approximation of the rotator cuff to the decorticated bone was achieved. At this point all instruments were removed and the arthroscopic portals were closed with 3-0 nylon. Well-padded nonadherent dressing was applied and patient was taken to recovery room in stable condition. - Admit VTE Documentation VTE Present on Admission: No VTE Mechan Device Prophylaxis: SCD's, Knee High TELMA Hose VTE Pharm Prophylaxis ordered?: No Reason prophylaxis not ordered:: Treatment Not Indicated
== END 2018-10-03 14:08 | disposition home or self-care (01) ==
LOC: SDC 07:34 → AC 07:35
PROVIDERS: Family Provider Family Medicine; PCP Family Medicine; Referring Provider Orthopaedic Surgery; Visit Provider Orthopaedic Surgery
PROC: (CPT 29827; principal; 2018-10-03 09:25)
DX: M75.42 Impingement syndrome of left shoulder (principal); M19.012 Primary osteoarthritis, left shoulder; S46.212A Strain of muscle, fascia and tendon of other parts of biceps, left arm, initial encounter; S46.012A Strain of muscle(s) and tendon(s) of the rotator cuff of left shoulder, initial encounter; X50.0XXA Overexertion from strenuous movement or load, initial encounter; X50.3XXA Overexertion from repetitive movements, initial encounter; Y93.89 Activity, other specified; Y92.9 Unspecified place or not applicable; I10 Essential (primary) hypertension; F12.90 Cannabis use, unspecified, uncomplicated
CPT/HCPCS: 29824; 29826; 29827; 64415; 93005; J7120; J2405